=== PATIENT | female | born 1980 ===

== ENCOUNTER 2016-07-25 12:11 | Inpatient (IN) | payer OTHER ==
[2016-07-25] MEDS ORDERED: OXYTOCIN IN LR 500 ML IV ONE ×2 (14:28→15:38)
[2016-07-25] MEDS ORDERED: SODIUM CHLORIDE 0.9% FLUSH 10 ML ONE (14:46)
[2016-07-25] MEDS ORDERED: IV START KIT ONE (14:46)
[2016-07-25 15:15] LABS: HEMATOCRIT 31.4 % (37.0-47.0); MEAN CELL VOLUME 78.7 fl (81.0-99.0); MEAN CORPUSCULAR HEMOGLOBIN 25.1 pg (27.0-31.0); MEAN CORPUSCULAR HGB CONC 31.8 g/dl (33.0-37.0); RED CELL DISTRIBUTION WIDTH 16.3 % (11.5-14.5)
[2016-07-25] MEDS ORDERED: PUMP TUBING ONE (15:38)
[2016-07-25] MEDS ORDERED: OXYTOCIN 10 UNITS/ML VIAL ONE (15:38)
[2016-07-25] MEDS ORDERED: MINERAL OIL 25 ML BOT ONE (15:38)
[2016-07-25] MEDS ORDERED: LIDOCAINE Viscous 2% 15 ML UDCUP ONE (15:38)
[2016-07-25] MEDS ORDERED: LIDOCAINE 1% (PRES FREE) 30 ML VIAL ONE (15:38)
[2016-07-25] MEDS ORDERED: LACTATED RINGERS 1,000 ML ONE (15:40)
--- NOTE | 2016-07-25 16:28 | PCMAN ---
OB Admission Note - History : 2 Term: 1 : 0 Abortions (S&E): 0 Livin Gestational Age (weeks): 40 Days (#/7): 5 Admit Cervical Dilation:: 5 Admit Cervical Effacement (%):: 90 Admit Station:: -2 Membrane Status: Bulging Rupture (Date): 07/25/16 Rupture (Time): 16:15 Membranes Comment:: AROM - bloody fluid, no meconium Contractions: Yes Contraction Frequency:: q2-3 Heart Rate:: 130 Status:: reactive EFW:: 3800 Summary of Course:: 35yo at 40+5, admitted for labor - changed from 3.5 to 4.5cm in 1 hour. Pt is ron q2-3 min strongly. Does not desire pain med / epidural at this time. Pt dated by LMP, c/w 8w u/w and had anatomy u/s at 21w. Previous vaginal delivery - 7 lbs. - Labs Blood Type: O (+) positive Rubella Status: Immune GBS Status: Negative Abnormal Labs: None - Physical Exam General: Afebrile, Moderate Distress Abdomen: Other (efw = 3800g) Genitourinary: Other (cx=/-2, vtx, bulging back noted - arom - bloody fluid , no meconium.) - Additional Comments Admit for labor IV started chk CBC FHT - cat I and reactive, may hhave intermittent monitoring s/p AROM - cont expectant mgmt.
[2016-07-25 17:01] VITALS: BMI 27.6
[2016-07-25] MEDS ORDERED: BUTORPHANOL TARTRATE 1 MG/ML VIAL IV ONE (17:06)
[2016-07-25] MEDS ORDERED: LACTATED RINGERS 1,000 ML IV SCH (17:46)
[2016-07-25] MEDS ORDERED: NALOXONE HCL 0.4 MG/ML VIAL ONE (17:55)
--- NOTE | 2016-07-25 18:28 | PCMDEL ---
Delivery Note - Delivery Gender: Male Presentation: Cephalic Position: OA Umbilical Cord: 3 Vessel Delayed Cord Clamping:: < 1-2 min Placenta:: complete, 3VC EBL:: 200cc Perineum:: intact Comments:: Pt progressed well to FD/100/0 station. Started pushing and pt pushed steadily. Bladder emptied with straight cath for 50cc. Pt pushed and delivered to DARLENE. Bulb suction applied to mouth and nares. Left (posterior) UE presented and delivered. At this point pt pushed herself up the bed. Baby arm was then rotated anteriorly to deliver. Ant (right) shoulder then delivered easily. Baby delivered to abdomen. Bulb applied again. After brief delay and milking, cord clamped and cut. Cord bloods collected. Placenta delivered complete with 3VC by uterine massage. No lacerations. EBL 200cc. Baby M delivered in stable condition, equal and appropriate tone all extremities.
[2016-07-25] MEDS ORDERED: BENZOCAINE/MENTHOL 60 APPLIC/BOT TP PRN (18:54)
[2016-07-25] MEDS ORDERED: LANOLIN 50 APPLIC/7G TUBE TP PRN (18:54)
[2016-07-25] MEDS ORDERED: IBUPROFEN 800 MG TABLET PO PRN (18:54)
[2016-07-25] MEDS ORDERED: DOCUSATE SODIUM 100 MG CAPSULE PO PRN (18:54)
[2016-07-25] MEDS ORDERED: OXYCODONE/ACETAMINOPHEN 5/325 MG TABLET PO PRN (18:54)
[2016-07-25] MEDS ORDERED: MAGNESIUM HYDROXIDE 30 ML UDCUP PO PRN (18:54)
[2016-07-25] MEDS ORDERED: SENNOSIDES 8.6 MG TABLET PO PRN (18:54)
[2016-07-25] MEDS ORDERED: LACTATED RINGERS 1,000 ML IV PRN (18:54)
[2016-07-25] MEDS ORDERED: FLU VACC 2016-17 (36MO-64Y)/PF 60 MCG/0.5 ML SYRINGE IM V ONE (19:06)
[2016-07-26 06:40] LABS: HEMATOCRIT 31.8 % (37.0-47.0); HEMOGLOBIN 9.8 gm/l (12.0-16.0)
--- NOTE | 2016-07-26 07:21 | PDOC39B ---
Hospital Course: ADMIT DATE: 07/25/16 DISCHARGE DATE: 07/26/16 ADMISSION DIAGNOSES: intrauterine at 40.5 weeks, active labor PROCEDURES: spontaneous vaginal delivery HISTORY OF PRESENT ILLNESS: 35 year old G2 T1 L1 at 40 weeks 5 days presenting with regular uterine contractions HOSPITAL COURSE: The patient had an uneventful post course and requested discharge on post day one By day of discharge the patient is ambulating, eating, voiding, and passing flatus without difficulty. Pain is controlled and lochia is appropriate. She is [] - Physical Exam Vital Signs: Temp Pulse Resp BP Pulse Ox 98.3 F 86 16 136/84 07/26/16 02:07 07/26/16 02:07 07/26/16 02:07 07/26/16 02:07 General: Afebrile, No Acute Distress Psych/Mental Status: Mood/Affect Appropriate, Judgment/Insight Intact, Bonding Well Breast: Soft, Skin intact, Nipples Intact, No Tenderness, No Erythema, No Engorged Fundus: Firm, Midline, At Umbilicus, Other (nontender) Genitourinary: Other (voiding without difficulty) Lochia: Light Extremities: No Tenderness - Discharge Diagnosis (1) Anemia, Status: Acute (2) Intrauterine Status: Acute - Discharge Plan Condition: Stable Disposition: Home Additional Instructions: nothing in vagina x 6 weeks, post visit with dr chavira in 2 weeks, take iron supplementation as prescribed Prescriptions: FERROUS SULFATE (65 Fe) [Ferrous Sulfate] 325 mg PO BID #60 tab
--- NOTE | 2016-07-26 07:28 | PDOC36 ---
Provider Note Note: ob note: duplicate order for ferrous sulfate. home rx: [id number] 325 mg po daily, not bid.
[2016-07-26 15:57] VITALS: BP 129/87
== END 2016-07-26 19:00 | disposition home or self-care (01) | DRG 775 ==
LOC: FBCOUT 12:11 → FBC 12:14 → FBCOUT 14:58 → FBC 15:00
PROVIDERS: ADMIT Obstetrics & Gynecology; ATTEND Obstetrics & Gynecology
PROC: 10E0XZZ Delivery of Products of Conception, External Approach (ICD-10-PCS; principal; 2016-07-25)
PROC: 10907ZC Drainage of Amniotic Fluid, Therapeutic from Products of Conception, Via Natural or Artificial Opening (ICD-10-PCS; 2016-07-25)
DX: O90.81 Anemia of the puerperium (principal); Z3A.40 40 weeks gestation of pregnancy; Z37.0 Single live birth